=== PATIENT | female | born 1980 | race Caucasian/White ===

== ENCOUNTER → 2016-09-08 | Outpatient (REF) | payer OTHER ==
[~2016-09-08] MED LIST: MOTR200T44 PO; PRENTAB9 PO
== END ==
LOC: M LAB REF 13:01
PROVIDERS: ATTEND Obstetrics & Gynecology
DX: Z34.83 Encounter for supervision of other normal pregnancy, third trimester (principal)

== ENCOUNTER → 2016-09-15 | Outpatient (REF) | payer OTHER | LOC: M LAB REF 12:50 | PROVIDERS: ATTEND Advanced Practice Midwife | DX: O34.211 Maternal care for low transverse scar from previous cesarean delivery (principal) ==

== ENCOUNTER 2016-09-22 05:32 | Inpatient (IN) | payer OTHER ==
[~2016-09-22] VITALS: Ht 165.1 cm; Wt 114.0 kg
[2016-09-22] VITALS (7 sets, daily range): BP systolic 103–129; BP diastolic 59–72
[2016-09-22] MEDS ORDERED: BICITRA 30ML SOLN UDC PO ONE (05:45)
[2016-09-22] MEDS ORDERED: LR 800 ML IV SCH (06:00)
[2016-09-22 06:20] LABS: MEAN CORPUSCULAR HEMOGLOBIN 30.9 pg (27.0-33.0); MEAN CORPUSCULAR HGB CONC 33.6 g/dl (32.0-36.5); MEAN CORPUSCULAR VOLUME 91.7 fl (80.0-96.0); RED CELL DISTRIBUTION WIDTH 15.4 % (11.5-14.5); WHITE BLOOD COUNT 9.6 K/mm3 (4.0-10.0)
[2016-09-22] MEDS ORDERED: LR 1,000 ML IV SCH (07:00)
[2016-09-22] MEDS ORDERED: ONDANSETRON 4MG/2ML VIAL (J2405) IV PRN ×2 (08:31→09:30)
[2016-09-22] MEDS ORDERED: NALOXONE INJ 0.4 MG/1 ML VIAL (J2310) IV PRN ×2 (08:31)
[2016-09-22] MEDS ORDERED: METOCLOPRAMIDE INJ 10MG/2ML VIAL (J2765) IV PRN (08:31)
[2016-09-22] MEDS ORDERED: NALBUPHINE HCL 10 MG/ML AMP (J2300) IV PRN (08:31)
[2016-09-22] MEDS ORDERED: MORPHINE PRES-FREE INJ 10 MG/10 ML VIAL (J2274) As Ordered ONE (08:34)
[2016-09-22] MEDS ORDERED: OXYTOCIN INJ 10 UNITS/ML VIAL (J2590) As Ordered ONE ×2 (08:39)
[2016-09-22] MEDS ORDERED: PHENYLephrine HCL 500 MCG/5 ML (100MCG/ML) SYRINGE (J2370) As Ordered ONE (08:39)
[2016-09-22] MEDS ORDERED: ePHEDrine SULFATE 25 MG/5 ML(5MG/ML) SYRINGE As Ordered ONE (08:39)
[2016-09-22] MEDS ORDERED: KETOROLAC 60 MG/2 ML VIAL (J1885) As Ordered ONE (08:45)
[2016-09-22] MEDS ORDERED: ONDANSETRON 4MG/2ML VIAL (J2405) As Ordered ONE (08:45)
[2016-09-22 08:56] LABS: CORD GAS ABE V -0.4; CORD GAS HCO3 V 25.4 MEQ/L; CORD GAS O2 SAT V 77.7 %; CORD GAS PCO2 V 45.7 mmHg; CORD GAS PH V 7.363 UNITS; CORD GAS PO2 V 32.4 mmHg; CORD GAS SBC V 23.6 MEQ/L; CORD GAS TCO2 V 26.8 MEQ/L
[2016-09-22 08:59] LABS: CORD GAS ABE A 0.7; CORD GAS O2 SAT A 52.6 %; CORD GAS PH A 7.324 UNITS; CORD GAS PO2 A 22.1 mmHg; CORD GAS SBC A 23.9 MEQ/L; CORD GAS TCO2 A 29.6 MEQ/L
[2016-09-22] MEDS ORDERED: MEASLES,MUMPS,RUBELLA VACCINE INJ (MMR-II) (90707) SC SCH (09:30)
[2016-09-22] MEDS ORDERED: MOM 30ML SUSPENSION UDC PO PRN (09:30)
[2016-09-22] MEDS ORDERED: RHOGAM 300 MCG (1500 IU) INJ (J2790) IM SCH (09:30)
[2016-09-22] MEDS ORDERED: NORCO, ANEXSIA 5/325MG TABLET (HYDROcodone/ACETAMINOPHEN) PO PRN (09:30)
[2016-09-22] MEDS ORDERED: fentaNYL 100 MCG/2 ML INJECTION (J3010) IV PRN (09:45)
[2016-09-22] MEDS: LR 1,000 ML IV SCH ×2 (13:30→21:26)
[2016-09-22] MEDS: IBUPROFEN 800 MG TAB PO SCH (18:55)
[2016-09-22] MEDS: DOCUSATE SODIUM 100 MG CAP PO SCH (21:25)
[2016-09-23] VITALS (7 sets, daily range): BP systolic 99–123; BP diastolic 58–68
[2016-09-23] MEDS: IBUPROFEN 800 MG TAB PO SCH ×3 (00:12→16:54)
[2016-09-23 07:09] LABS: MEAN CORPUSCULAR HEMOGLOBIN 30.7 pg (27.0-33.0); MEAN CORPUSCULAR HGB CONC 33.9 g/dl (32.0-36.5); MEAN CORPUSCULAR VOLUME 90.6 fl (80.0-96.0); RED CELL DISTRIBUTION WIDTH 15.7 % (11.5-14.5); WHITE BLOOD COUNT 8.3 K/mm3 (4.0-10.0)
--- NOTE | 2016-09-23 08:44 | HPE ---
DATE OF ADMISSION: 09/22/2016 Tosha is a 35-year-old female, 9, para 3-0-5-3, with a history of three prior sections being admitted at term for elective repeat section. Upon admission, no bleeding, no leakage of fluid, good movement. Her record is reviewed. Patient initiated care in her first trimester. Her care was essentially unremarkable. PAST MEDICAL HISTORY: Denies. PAST SURGICAL HISTORY: The patient has three sections and multiple dilations and curettages (D and Cs) for spontaneous abortions (ABs). The patient also had a Maxwell fundoplication done by laparoscopy. SOCIAL HISTORY: She is . Denies any alcohol, drugs or cigarette smoking. REVIEW OF SYSTEMS: Unremarkable. FAMILY HISTORY: Significant for mouth cancer and diabetes. MEDICATIONS: vitamins ALLERGIES: No known drug allergies. PHYSICAL EXAMINATION: Obese female in no acute distress. Abdomen soft, nontender, nondistended. Extremities: No clubbing, cyanosis or edema. Vaginal exam deferred. LABS: Blood type is O positive. Rubella immune, hepatitis negative, HIV negative, GC and chlamydia negative. 1-hour sugar testing was within normal limits. Her GBS was positive. ASSESSMENT: Intrauterine at 38+ weeks gestation admitted for repeat section. The patient is undergoing this section at 38 weeks as last had a huge lower uterine segment window. PLAN: Admit the patient to labor and delivery. Awaiting operating room (OR). The patient counseled extensively. She is aware of the risk of uterine rupture. Will await the OR for repeat section. Tubal ligation was also discussed with the patient at the time of the section, but patient and her refused. Risk of future also discussed with this patient.
[2016-09-23] MEDS: DOCUSATE SODIUM 100 MG CAP PO SCH ×2 (09:06→21:07)
[2016-09-23] MEDS: PRENATAL VITAMIN TAB PO SCH (09:06)
--- NOTE | 2016-09-23 13:02 | RO ---
DATE OF PROCEDURE: 09/23/2016 PREOPERATIVE DIAGNOSES: 1. Term for repeat section. 2. History of three prior sections with a large lower uterine segment window at her last section. POSTOPERATIVE DIAGNOSES: 1. Term for repeat section. 2. History of three prior sections with a large lower uterine segment window at her last section. 3. Large lower uterine segment window with membranes and clear fluid visualized. PROCEDURE: 1. Repeat section. 2. Revision of old scar. SURGEON: Dr. Murray Reed BULB FARMWORKER: ANESTHESIA: Spinal. COMPLICATIONS: None. ESTIMATED BLOOD LOSS: 500 mL. FINDINGS: Live male infant in left occiput transverse position. 9 and 9. weight 9 pounds 5 ounces. In the lower uterine segment, there was a large window to the left side of the lower uterine segment where membranes and clear fluid was visualized even prior to entering the lower uterine segment. Tosha is a 35-year-old female, 9, para 3-0-5-3, with a history of three prior sections who is being admitted for repeat section. PROCEDURE: After obtaining informed consent, the patient was taken to the operating room where spinal anesthetic was found to be adequate. She was then draped and prepped in the usual sterile fashion in the supine position. At this point, elliptical incision was made over her old scar. The old scar was removed and the incision was carried down to the fascia. Fascia was incised in midline fashion and carried through laterally. Superior aspect of the fascia grasped with two Talib clamps, tented off and dissected off the rectus muscles sharply. The inferior aspect was dissected off in a similar fashion. Rectus muscles midline fashion. Peritoneum identified. Peritoneal cavity entered bluntly. Superior and inferior dissection of the peritoneum was then done with good visualization of the bladder. At this point, a Mobius skin retractor was placed and the pelvis was inspected. A large lower uterine segment window was noted to the left with clear fluid visualized through the membrane. At this point, using blunt dissection the lower uterine window was extended, the membranes were ruptured and the was delivered in atraumatic fashion. Nose and mouth bulb suctioned. Cord doubly clamped and cut. was handed over to the waiting warmer. Cord blood and cord gas sent. Placenta removed manually. Uterus cleared of all clot and debris. The lower uterine incision was then repaired using #0 Vicryl in two separate segments. The pelvis copiously irrigated with normal saline and suctioned out. Normal-appearing tubes and ovaries noted. We then closed the peritoneum using #2-0 Vicryl in running fashion. Fascia closed in two separate segments of #0 Vicryl suture. The skin was reapproximated in subcuticular fashion using #3-0 Vicryl on a Jose Alberto. The patient tolerated the procedure well. She was then transferred to recovery room in stable condition.
[2016-09-23] MEDS: NORCO, ANEXSIA 5/325MG TABLET (HYDROcodone/ACETAMINOPHEN) PO PRN ×2 (13:16→18:17)
[2016-09-24] MEDS: IBUPROFEN 800 MG TAB PO SCH ×2 (00:58→08:23)
[2016-09-24 01:58] VITALS: BP 97/62
[2016-09-24 06:08] VITALS: BP 110/65
[2016-09-24] MEDS ORDERED: COLA100C PO (08:19)
[2016-09-24] MEDS ORDERED: IBUP-1114 PO (08:19)
[2016-09-24] MEDS ORDERED: NORC5TAB PO ×2 (08:20→08:21)
[2016-09-24] MEDS ORDERED: MOM30SS PO (08:22)
[2016-09-24] MEDS: PRENATAL VITAMIN TAB PO SCH (08:23)
[2016-09-24] MEDS: DOCUSATE SODIUM 100 MG CAP PO SCH (08:23)
[2016-09-24] MEDS ORDERED: OXYC1TAB23 PO (10:14)
[2016-09-24] MEDS ORDERED: IBUP800T23 PO (10:14)
--- NOTE | 2016-09-26 08:30 | DSES ---
DATE OF ADMISSION: 09/22/2016 DATE OF DISCHARGE: FINAL DIAGNOSIS: Term for elective repeat section times four. CONDITION ON DISCHARGE: Stable. DISCHARGE INSTRUCTIONS: The patient is to call if there is any severe bleeding, pain or temperature greater than 101. She is given a script for Percocet as needed for pain and also Motrin every 8 hours. BRIEF HISTORY: Tosha is a 35-year-old female 9, para 3-0-5-3 who is admitted at 38+ weeks gestation for repeat section. She underwent the above noted procedure and was found to have a large lower uterine segment window which was repaired. The patient was extensively counseled about future , advised her chance of our uterine rupture is a lot greater if she becomes again. She was also counseled on tubal ligation and patient declined. On the day of discharge, she was examined felt to be within normal limits. Her incision was clean, dry and intact. Discharge hemoglobin and hematocrit is 10.5 over 31.1 with a platelet count of 157. The patient is then being discharged to follow up in the office in approximately 2 weeks for an incision check.
== END 2016-09-24 10:54 | disposition home or self-care (01) | DRG 766 ==
LOC: M LDI 05:32 → M OBS 11:25
PROVIDERS: ADMIT Obstetrics & Gynecology; ATTEND Obstetrics & Gynecology
PROC: 10D00Z1 Extraction of Products of Conception, Low, Open Approach (ICD-10-PCS; principal; 2016-09-23)
PROC: 0HB7XZZ Excision of Abdomen Skin, External Approach (ICD-10-PCS; 2016-09-23)
DX: O34.211 Maternal care for low transverse scar from previous cesarean delivery (principal); O99.824 Streptococcus B carrier state complicating childbirth; O94 Sequelae of complication of pregnancy, childbirth, and the puerperium; Z3A.38 38 weeks gestation of pregnancy; Z37.0 Single live birth

== ENCOUNTER → 2017-11-21 | Outpatient (REF) | payer OTHER ==
[2017-11-21 18:04] LABS: HEMATOCRIT 38.6 % (36.0-47.0); HEMOGLOBIN 12.8 g/dl (12.0-16.0); MEAN CORPUSCULAR HEMOGLOBIN 29.8 pg (27.0-33.0); MEAN CORPUSCULAR HGB CONC 33.2 g/dl (32.0-36.5); MEAN CORPUSCULAR VOLUME 89.8 fl (80.0-96.0); PLATELET COUNT, AUTOMATED 225 10^3/uL (150-450); RED CELL DISTRIBUTION WIDTH 14.1 % (11.5-14.5); WHITE BLOOD COUNT 8.1 10^3/uL (4.0-10.0)
[2017-11-22 09:31] LABS: HCG, SERUM QUANTITATIVE 35404 MIU/ML
[2017-11-22 10:41] LABS: RUBELLA IgG QUALITATIVE IMMUNE (IMMUNE)
[2017-11-22 11:01] LABS: HEPATITIS B SURFACE ANTIGEN NEGATIVE (NEGATIVE)
[2017-11-22 11:12] LABS: HEPATITIS C VIRUS ABY INDEX < 0.0 INDEX (<0.8)
[2017-11-22 11:26] LABS: HIV 1&2 SCREEN CENTAUR NEGATIVE (NEGATIVE)
== END ==
LOC: M LAB REF 16:57
DX: Z32.01 Encounter for pregnancy test, result positive (principal)

== ENCOUNTER → 2017-12-21 | Outpatient (REF) | payer OTHER ==
[2017-12-21 20:40] LABS: CHLAMYDIA DNA AMPLIFICATION NEGATIVE (NEGATIVE); GC DNA AMPLIFICATION NEGATIVE (NEGATIVE)
== END ==
LOC: M LAB REF 17:03
DX: Z34.82 Encounter for supervision of other normal pregnancy, second trimester (principal); Z3A.00 Weeks of gestation of pregnancy not specified
CPT/HCPCS: 87591

== ENCOUNTER 2018-05-10 05:08 | Inpatient (IN) | payer OTHER ==
[2018-05-10] MEDS: LR 1,000 ML IV ×2 (06:05→07:06)
[2018-05-10 06:41] LABS: HEMATOCRIT 33.8 % (36.0-47.0); HEMOGLOBIN 11.2 g/dl (12.0-15.5); MEAN CORPUSCULAR HEMOGLOBIN 30.3 pg (27.0-33.0); MEAN CORPUSCULAR HGB CONC 33.1 g/dl (32.0-36.5); MEAN CORPUSCULAR VOLUME 91.4 fl (80.0-96.0); PLATELET COUNT, AUTOMATED 156 10^3/uL (150-450); RED CELL DISTRIBUTION WIDTH 15.1 % (11.5-14.5); WHITE BLOOD COUNT 10.6 10^3/uL (4.0-10.0)
[2018-05-10] MEDS: BICITRA 30ML SOLN UDC PO (07:41)
[2018-05-10] MEDS ORDERED: NALOXONE INJ 0.4 MG/1 ML VIAL (J2310) IV ×2 (07:55)
[2018-05-10] MEDS ORDERED: NALBUPHINE HCL 10 MG/ML AMP (J2300) IV ×2 (07:55→09:30)
[2018-05-10] MEDS ORDERED: ONDANSETRON 4MG/2ML VIAL (J2405) IV ×3 (07:55→09:30)
[2018-05-10] MEDS ORDERED: PHENYLephrine HCL 500 MCG/5 ML (100MCG/ML) SYRINGE (J2370) As Ordered (07:59)
[2018-05-10] MEDS ORDERED: OXYTOCIN INJ 10 UNITS/ML VIAL (J2590) As Ordered ×3 (07:59→09:02)
[2018-05-10] MEDS ORDERED: ePHEDrine SULFATE 25 MG/5 ML(5MG/ML) SYRINGE As Ordered ×2 (07:59)
[2018-05-10] MEDS ORDERED: MORPHINE PRES-FREE INJ 10 MG/10 ML VIAL (J2274) As Ordered (07:59)
[2018-05-10] MEDS ORDERED: ONDANSETRON 4MG/2ML VIAL (J2405) As Ordered (08:12)
[2018-05-10] MEDS ORDERED: dexameTHASONE 4 MG/ML 1ML VIAL (J1100) As Ordered ×2 (08:12)
[2018-05-10] MEDS ORDERED: KETOROLAC 60 MG/2 ML VIAL (J1885) As Ordered (08:12)
[2018-05-10] MEDS ORDERED: METOCLOPRAMIDE INJ 10MG/2ML VIAL (J2765) As Ordered (08:21)
[2018-05-10 08:41] LABS: CORD GAS ABE V -0.7; CORD GAS O2 SAT V 76.8 %; CORD GAS PCO2 V 44.9 mmHg; CORD GAS PH V 7.363 UNITS; CORD GAS PO2 V 33.8 mmHg; CORD GAS SBC V 23.3 MEQ/L; CORD GAS TCO2 V 26.3 MEQ/L
[2018-05-10 08:44] LABS: CORD GAS ABE A -0.2; CORD GAS HCO3 A 27.8 MEQ/L; CORD GAS O2 SAT A 40.7 %; CORD GAS PCO2 A 58.5 mmHg; CORD GAS PH A 7.294 UNITS; CORD GAS PO2 A 19.8 mmHg; CORD GAS SBC A 22.9 MEQ/L; CORD GAS TCO2 A 29.5 MEQ/L
[2018-05-10] MEDS: DOCUSATE SODIUM 100 MG CAP PO ×2 (09:00→21:09)
[2018-05-10] MEDS: PRENATAL VITAMINS CHEWABLE TABLET PO (09:00)
[2018-05-10] MEDS: OXYTOCIN DRIP 30 UNITS in APPROPRIATE DILUENT 1 EA IV (09:10)
[2018-05-10] MEDS ORDERED: METHYLERGONOVINE MALEATE 0.2 MG TAB PO (09:15)
[2018-05-10] MEDS ORDERED: MOM 30ML SUSPENSION UDC PO (09:15)
[2018-05-10] MEDS ORDERED: NORCO, ANEXSIA 5/325MG TABLET (HYDROcodone/ACETAMINOPHEN) PO ×2 (09:15)
[2018-05-10] MEDS ORDERED: MEPERIDINE INJ 25 MG/ML VIAL (J2175) IV (09:30)
[2018-05-10] MEDS ORDERED: fentaNYL 100 MCG/2 ML INJECTION (J3010) IV (09:30)
[2018-05-10] MEDS ORDERED: diphenhydrAMINE INJ 50MG/ML VIAL (J1200) IV (09:30)
[2018-05-10] MEDS ORDERED: IBUPROFEN 800 MG TAB PO (16:00)
[2018-05-10] MEDS: METOCLOPRAMIDE INJ 10MG/2ML VIAL (J2765) IV (17:14)
[2018-05-10] MEDS: IBUPROFEN 800 MG TAB PO (21:09)
[2018-05-11] MEDS: IBUPROFEN 800 MG TAB PO ×3 (05:43→20:39)
[2018-05-11 07:24] LABS: HEMATOCRIT 30.3 % (36.0-47.0); MEAN CORPUSCULAR HEMOGLOBIN 30.8 pg (27.0-33.0); MEAN CORPUSCULAR VOLUME 93.2 fl (80.0-96.0); PLATELET COUNT, AUTOMATED 152 10^3/uL (150-450); RED BLOOD COUNT 3.25 10^6/uL (4.00-5.40); RED CELL DISTRIBUTION WIDTH 15.2 % (11.5-14.5); WHITE BLOOD COUNT 10.6 10^3/uL (4.0-10.0)
[2018-05-11] MEDS: MEASLES,MUMPS,RUBELLA VACCINE INJ (MMR-II) (90707) SC (07:25)
[2018-05-11] MEDS: RHOGAM 300 MCG (1500 IU) INJ (J2790) IM (07:25)
[2018-05-11] MEDS: PRENATAL VITAMINS CHEWABLE TABLET PO (08:48)
[2018-05-11] MEDS: DOCUSATE SODIUM 100 MG CAP PO ×2 (08:48→20:38)
[2018-05-12] MEDS: IBUPROFEN 800 MG TAB PO ×3 (05:51→20:37)
[2018-05-12] MEDS: DOCUSATE SODIUM 100 MG CAP PO ×2 (08:05→20:36)
[2018-05-12] MEDS: PRENATAL VITAMINS CHEWABLE TABLET PO (08:06)
[2018-05-13] MEDS: IBUPROFEN 800 MG TAB PO ×2 (05:43→13:11)
[2018-05-13] MEDS: DOCUSATE SODIUM 100 MG CAP PO (08:55)
[2018-05-13] MEDS: PRENATAL VITAMINS CHEWABLE TABLET PO (08:55)
== END 2018-05-13 13:30 | disposition home or self-care (01) | DRG 766 ==
LOC: M LDI 05:08 → M OBS 10:51
PROVIDERS: Obstetrics & Gynecology
PROC: 10D00Z1 Extraction of Products of Conception, Low, Open Approach (ICD-10-PCS; principal; 2018-05-10 07:30)
PROC: 0UL70DZ Occlusion of Bilateral Fallopian Tubes with Intraluminal Device, Open Approach (ICD-10-PCS; 2018-05-10 07:30)
DX: O34.211 Maternal care for low transverse scar from previous cesarean delivery (principal); Z37.0 Single live birth; Z3A.36 36 weeks gestation of pregnancy; Z30.2 Encounter for sterilization; O09.523 Supervision of elderly multigravida, third trimester

== ENCOUNTER 2018-12-28 08:21 | Day surgery (SDC) | payer OTHER ==
[~2018-12-28] VITALS: Ht 167.6 cm; Wt 117.0 kg
[~2018-12-28 08:21] MED LIST changes: +COLA100C5 PO; +GLYCOPYRROLATE INJ 0.2 MG/ML 2 ML VIAL As Ordered ONE; +IBUP-1114 PO; +IBUP1TAB7 PO; +IBUP80TA PO; +KETOROLAC 60 MG/2 ML VIAL (J1885) As Ordered ONE; +LIDOCAINE 2% INJ 100 MG/5 ML SDV (FOR ANES.) As Ordered ONE; +MIDAZOLAM INJ 2 MG/2 ML VIAL (J2250) As Ordered ONE; +MOM30SS PO; +NEOSTIGMINE 10 MG/10 ML VIAL (J2710) As Ordered ONE; +NORC1TAB7 PO; +ONDANSETRON 4MG/2ML VIAL (J2405) As Ordered ONE; +OXYC1TAB23 PO; +PREN1TAB11 PO; +PROPOFOL 200 MG/20 ML VIAL As Ordered ONE; +ROCURONIUM BROMIDE 50 MG/5 ML VIAL As Ordered ONE; +dexameTHASONE 4 MG/ML 1ML VIAL (J1100) As Ordered ONE; +fentaNYL 100 MCG/2 ML INJECTION (J3010) As Ordered ONE
[2018-12-28] MEDS ORDERED: GLYCOPYRROLATE INJ 0.2 MG/ML 2 ML VIAL As Ordered ONE (08:24)
[2018-12-28] MEDS ORDERED: LR 1,000 ML IV ONE (08:30)
[2018-12-28 09:07] LABS: HEMATOCRIT 40.9 % (36.0-47.0); HEMOGLOBIN 13.3 g/dl (12.0-15.5); MEAN CORPUSCULAR HEMOGLOBIN 29.6 pg (27.0-33.0); MEAN CORPUSCULAR HGB CONC 32.5 g/dl (32.0-36.5); MEAN CORPUSCULAR VOLUME 90.9 fl (80.0-96.0); PLATELET COUNT, AUTOMATED 229 10^3/uL (150-450); WHITE BLOOD COUNT 7.9 10^3/uL (4.0-10.0)
[2018-12-28 09:19] LABS: BLOOD UREA NITROGEN 21 MG/DL (7-18); CALCIUM LEVEL 8.5 MG/DL (8.5-10.1); CARBON DIOXIDE LEVEL 29 MEQ/L (21-32); CHLORIDE LEVEL 110 MEQ/L (98-107); CREATININE FOR GFR 0.93 MG/DL (0.55-1.30); GLOMERULAR FILTRATION RATE > 60.0 (>60); GLUCOSE, FASTING 100 MG/DL (70-100); POTASSIUM SERUM 4.2 MEQ/L (3.5-5.1); SODIUM LEVEL 142 MEQ/L (136-145)
[2018-12-28] MEDS ORDERED: BUPIVACAINE/EPIN 0.25% 30 ML VIAL As Ordered ONE (11:15)
[2018-12-28] MEDS ORDERED: fentaNYL 100 MCG/2 ML INJECTION (J3010) As Ordered ONE (12:00)
[2018-12-28] MEDS ORDERED: ONDANSETRON 4MG/2ML VIAL (J2405) IV PRN (13:15)
[2018-12-28] MEDS ORDERED: NORCO, ANEXSIA 5/325MG TABLET (HYDROcodone/ACETAMINOPHEN) PO PRN ×2 (13:15)
[2018-12-28] MEDS ORDERED: fentaNYL 100 MCG/2 ML INJECTION (J3010) IV PRN (13:15)
[2018-12-28] MEDS ORDERED: LR 1,000 ML IV SCH (13:15)
[2018-12-28 15:45] VITALS: BP 116/61
--- NOTE | 2018-12-31 06:47 | RO ---
DATE OF PROCEDURE: 12/28/2018 PREOPERATIVE DIAGNOSIS: Incarcerated ventral incisional hernia. POSTOPERATIVE DIAGNOSIS: Incarcerated ventral incisional hernia. PROCEDURE: Robotic repair of incarcerated ventral incisional hernia. SURGEON: Navid Lucero DO MANAGER BEHAVIORAL: CESAR Gillette ANESTHESIA: General. ESTIMATED BLOOD LOSS: 5 mL. COMPLICATIONS: None. INDICATIONS FOR PROCEDURE: The patient is a 38-year-old female who presents with a incisional hernia superior to her umbilicus in the midline that is unable to be reduced. My recommendation was to proceed with robotic repair. Risks and benefits of the procedure not limited to but including bleeding, infection, hernia formation, hernia recurrence, damage to surrounding structures, need for further surgery were discussed in detail with the patient. Informed consent was obtained and procedure was planned. PROCEDURE: The patient brought back to operating room 7. After sufficient sedation, the abdomen was sterilely prepped and draped. Next, a time out was done to confirm proper patient and proper procedure. Following that a 8 mm incision made laterally in the left upper quadrant. The Veress needle was inserted and the abdomen was insufflated to 15 mmHg. Next, the Veress needle was removed. 8 mm robotic port was placed and the abdomen was entered. After entering, two more ports were placed in the left mid abdomen as far laterally as possible. After doing so, the robot was connected to the ports. Next, from the console I took down some adhesions near the umbilicus and then dissected free the hernia sac and contents that were at that the inferior edge of the falciform ligament. After doing so, it revealed about a 2 cm defect. The defect was then closed by using a #2-0 STRATAFIX suture. Once that was finished, I took a 9 cm round Parietex mesh, placed it inside the abdomen, took a #2-0 V-Loc and started to suture around the posterior side. However, was unable to reach because the left upper port was to close to the mesh. After I had the mesh tacked in place, the robot was undocked. I then took a SecureStrap Tacker and finished tacking around the perimeter of the mesh to hold it in place. Once that was completed the abdomen desufflated. Skin incisions were closed with #4-0 Vicryl subcuticular sutures. The abdomen was cleaned and dried. Steri-Strips, 4x4 and tape were applied thus ending procedure.
== END 2018-12-28 15:50 | disposition home or self-care (01) ==
LOC: M SDC 08:21
PROVIDERS: ATTEND Surgery
DX: K43.6 Other and unspecified ventral hernia with obstruction, without gangrene (principal); K76.9 Liver disease, unspecified
CPT/HCPCS: 36415; 49653; 80048; 85027; C1781; J0690; J1100; J1885; J2250; J2405; J2710; J3010

== ENCOUNTER → 2019-04-05 | Outpatient (CLI) | payer OTHER ==
[~2019-04-05] MED LIST changes: -GLYCOPYRROLATE INJ 0.2 MG/ML 2 ML VIAL As Ordered ONE; -KETOROLAC 60 MG/2 ML VIAL (J1885) As Ordered ONE; -LIDOCAINE 2% INJ 100 MG/5 ML SDV (FOR ANES.) As Ordered ONE; -MIDAZOLAM INJ 2 MG/2 ML VIAL (J2250) As Ordered ONE; -NEOSTIGMINE 10 MG/10 ML VIAL (J2710) As Ordered ONE; -ONDANSETRON 4MG/2ML VIAL (J2405) As Ordered ONE; -PROPOFOL 200 MG/20 ML VIAL As Ordered ONE; -ROCURONIUM BROMIDE 50 MG/5 ML VIAL As Ordered ONE; -dexameTHASONE 4 MG/ML 1ML VIAL (J1100) As Ordered ONE; -fentaNYL 100 MCG/2 ML INJECTION (J3010) As Ordered ONE
--- NOTE | 2019-04-05 14:44 | REP ---
TRIPLE PHASE BONE SCAN, ANKLES AND FEET: Following the intravenous administration of 22 mCi of technetium-99m MDP, patient's ankles and feet are imaged in the flow phase in the anterior and posterior projections, followed by immediate blood pool and 2.5 hour delayed images. There is slightly increased blood flow and blood pool to the region of the right heel. There is focal increased uptake in the posterior inferior right calcaneus on delayed images. No other osseous uptake is seen in either ankle or foot. IMPRESSION: Focal increased blood pooling and delayed uptake in the posterior inferior right calcaneus suggesting stress related changes at that location. No other abnormal osseous uptake in either ankle or foot. Electronically Signed by Navid Alberts MD 04/08/2019 11:17 A
== END ==
LOC: M RAD 08:06
PROVIDERS: ATTEND Podiatrist
DX: M79.671 Pain in right foot (principal)
CPT/HCPCS: 78315; A9503

== ENCOUNTER → 2019-04-27 | Outpatient (CLI) | payer OTHER ==
--- NOTE | 2019-04-30 10:05 | REP ---
MRI RIGHT FOOT: TECHNIQUE: Multiple sequences obtained in the axial, coronal and sagittal planes. Achilles, anterior tibial, posterior tibial, flexor hallucis longus, flexor digitorum longus and peroneal tendons are all intact. There is mild fluid surrounding the flexor hallucis longus, flexor digitorum longus, and posterior tibial tendons just below the ankle joint, of doubtful significance. Anterior and posterior talofibular, calcaneofibular, tibiofibular, and deltoid ligaments are intact. Plantar tendon is intact. There is mild subchondral marrow edema in the posterior inferior calcaneus near the insertion site of that tendon. There is mild ill-defined soft tissue edema deep to the plantar tendon near the insertion onto the calcaneus. Findings are consistent with subchondral stress-related changes of the bone at this tendinous insertion site with some mild deep plantar fascitis. Flexor and extensor tendons in the foot appear intact without significant tenosynovitis. There is no other abnormal bone marrow signal. There is no occult fracture. No ganglion cyst is seen. Small amount of joint fluid is seen posterior to the talus. IMPRESSION: Subchondral marrow edema in the posterior inferior calcaneus corresponds to an area of increased uptake on bone scan 04/05/2019. This is consistent with stress related changes of the bone at the tendinous insertion site of the plantar tendon. In addition, there is mild ill-defined soft tissue edema just deep to the plantar tendon at this insertion site consistent with mild deep plantar fasciitis. Small amount of joint fluid posterior to the talus. Small amount of fluid surrounds the flexor hallucis longus, flexor digitorum longus and posterior tibial tendons at this level, of doubtful significance. Electronically Signed by Navid Alberts MD 04/30/2019 11:40 A
== END ==
LOC: M RAD 10:38
PROVIDERS: ATTEND Podiatrist
DX: M77.41 Metatarsalgia, right foot (principal)

== ENCOUNTER → 2021-01-14 | Outpatient (CLI) | payer OTHER ==
--- NOTE | 2021-01-14 08:53 | REPMRS ---
Patient History The patient states she had a clinical breast exam in December 2020. No known family history of cancer. No Hormone Replacement Therapy Patient states no breast complaints today. Patient has signed MRS History Sheet. Digital Woman Screen Mammo: January 14, 2021 - Exam #: [id number] Bilateral CC and MLO view(s) were taken. Technologist: Valerie Reyes, RT No prior studies available for comparison. FINDINGS: There are scattered fibroglandular densities. The Volpara volumetric breast density category is: B. There is no evidence of dominant mass, architectural distortion, or grouped microcalcification typical of malignancy. 3-D tomosynthesis shows no additional findings. Assessment: BI-RADS/ACR category 1 mammogram. Negative Mammogram. Recommendation Routine screening mammogram of both breasts in 1 year (for women over age 40). This patient's [facility] Lifetime Breast Cancer RIsk is estimated at 11.7 %. This mammogram was interpreted with the aid of an FDA-approved computer-aided dectection system. Electronically Signed By: Andrew Cat MD 01/14/21 0853
== END ==
LOC: M WHC 07:57
PROVIDERS: ATTEND Obstetrics & Gynecology
DX: Z12.31 Encounter for screening mammogram for malignant neoplasm of breast (principal)

== ENCOUNTER → 2023-01-16 | Outpatient (CLI) | payer OTHER | LOC: M WHC 09:35 | PROVIDERS: ATTEND Obstetrics & Gynecology | DX: Z12.31 Encounter for screening mammogram for malignant neoplasm of breast (principal) ==